=== PATIENT | female | born 1975 | race Caucasian/White ===

== ENCOUNTER 2017-04-19 20:10 | Inpatient (IN) ==
[2017-04-19] MEDS ORDERED: Ipratropium/Albuterol Neb 3 ML IH ONE ×4 (20:44→22:44)
[2017-04-19] MEDS: Ipratropium/Albuterol Neb 3 ML IH ONE ×2 (21:08)
[2017-04-19] MEDS ORDERED: Insulin Regular, Human 100 UNIT/ML SQ ONE (21:36)
--- NOTE | 2017-04-19 21:40 | Emergency Department Note ---
Disposition Clinical Impression: Asthma Disposition: Admitted As Inpatient Condition: Good Referrals: Enedelia Trejo MD [Primary Care Provider] - Forms: ED Satisfaction Letter Time of Disposition: 22:00 SOB HPI - General Chief Complaint: ED Upper Respiratory Infection Stated Complaint: chest pain burning in chest throat fever Cough Source: patient Mode of arrival: ambulatory Limitations: no limitations Nursing Notes Reviewed: Yes Vital Signs Reviewed: Yes - History of Present Illness For the past couple of days Ms. Webb has been increasingly short of breath. She is a known asthmatic but has very little use or need for albuterol when she is feeling at her baseline. She also reports that last week before she gets sick her sugars were in the 140 range. She does use Dulera on a daily basis for prevention. She is a diabetic and tells me that her sugars have been "not good". She has never quite felt this bad before in terms of her shortness of breath. Last time she needed prednisone was about a year ago. She has had a four-day history of a head cold sinus drainage. PO intake has been decreased because of her cough. She has had no nausea vomiting or diarrhea. She has had some left-sided chest pain only when coughing as well. - Related Data Home Medications Medication Instructions Recorded Confirmed Insulin ASPART [NovoLOG] 0 unit SQ TIDWM 05/01/15 04/19/17 Insulin Glargine,Hum.rec.anlog 20 unit SQ DAILY 05/01/15 04/19/17 [Lantus Solostar] Lisinopril [Zestril] 10 mg PO DAILY 05/01/15 04/19/17 hydroCHLOROthiazide 25 mg PO DAILY 05/01/15 04/19/17 [Hydrochlorothiazide] metFORMIN [Glucophage] 1,000 mg PO BIDWM 05/01/15 04/19/17 ALPRAZolam [Xanax 0.5 MG Tablet] 0.5 mg PO BID 10/29/15 10/29/15 Cetirizine HCl [Zyrtec] 10 mg PO DAILY PRN 10/29/15 04/19/17 EPINEPHrine [Epipen] 0.3 mg SQ ONCE PRN 10/29/15 04/19/17 Fluticasone Propionate Nasal 50 mcg NS BID 10/29/15 04/19/17 [Flonase] Gabapentin [Neurontin] 300 mg PO TID 10/29/15 04/19/17 Ketotifen Fumarate [Zaditor] 0.025 drop OP BID 10/29/15 04/19/17 Mometasone/Formoterol [Dulera 200 13 gm IH BID 10/29/15 04/19/17 Mcg/5 Mcg Inhaler] Montelukast [Singulair] 10 mg PO HS 10/29/15 04/19/17 Nystatin Cream [Mycostatin Cream] 1 appl TP BID 10/29/15 04/19/17 Previous Rx's Medication Instructions Recorded Gabapentin [Neurontin] 600 mg PO TID #60 capsule 10/29/15 HYDROcodone/Acet 5/325 mg [[place] 1 tab PO Q6H PRN #8 tab 01/23/17 5-325 mg] Allergies Allergy/AdvReac Type Severity Reaction Status Date / Time aspirin [ASA] Allergy Swelling Verified 04/19/17 20:23 of Lip/Tongue/Throat doxycycline Allergy Swelling Verified 04/19/17 20:23 of Lip/Tongue/Throat ibuprofen [From Motrin] Allergy Swelling Verified 04/19/17 20:23 of Lip/Tongue/Throat Penicillins Allergy Swelling Verified 04/19/17 20:23 of Lip/Tongue/Throat sulfamethoxazole Allergy Swelling Verified 04/19/17 20:23 [From Bactrim] of Lip/Tongue/Throat trimethoprim [From Bactrim] Allergy Swelling Verified 04/19/17 20:23 of Lip/Tongue/Throat Constitutional: Denies: fever, chills ENT ED: Denies: throat pain Cardiovascular: Reports: chest pain Respiratory: Reports: cough, dyspnea, sputum production Gastrointestinal: Denies: nausea, vomiting, diarrhea Musculoskeletal: Denies: myalgia Neurological: Denies: headache Endocrine: Reports: fatigue Past Medical History - Past Medical History Medical history: Reports: diabetes, hypertension, other Surgical history: Reports: Psychiatric history: Reports: no psych history CHARGE ENTRY history: Reports: bilateral tubal ligation - Social History Smoking Status: Never smoker Smokeless Tobacco Status: No Alcohol use: Reports: none Drug use: Reports: none Physical Exam - General Limitations: no limitations General appearance: alert, in distress - Head Head exam: atraumatic, normocephalic - Eye Eye exam: Present: normal appearance - ENT ENT exam: normal exam, normal oropharynx, mucous membranes moist, TM's normal bilaterally, normal external ear exam - Neck Neck exam: Present: normal inspection. Absent: lymphadenopathy - Chest Chest inspection: Present: normal inspection, symmetric chest wall rise - Respiratory Respiratory exam: Present: respiratory distress, wheezes (Fair air exchange with inspiratory expiratory wheezes symmetrically bilaterally.) - Cardiovascular Cardiovascular exam: Present: normal rhythm, tachycardia, normal heart sounds. Absent: systolic murmur, diastolic murmur - Extremities Exam Extremities exam: Present: normal inspection. Absent: pedal edema, calf tenderness (No calf edema cord or erythema) - Neurological Exam Neurological exam: Present: alert - Psychiatric Psychiatric exam: Present: normal affect, normal mood - Skin Skin exam: Present: warm, dry Course Vital Signs Temperature 98.2 F 04/19/17 20:18 Pulse Rate 101 04/19/17 20:18 Respiratory Rate 24 04/19/17 20:18 Blood Pressure 189/82 04/19/17 20:18 O2 Sat by Pulse Oximetry 87 04/19/17 20:18 Temperature 100.1 F H 04/19/17 21:48 Pulse Rate 101 04/19/17 20:18 Respiratory Rate 24 04/19/17 20:18 Blood Pressure 189/82 04/19/17 20:18 O2 Sat by Pulse Oximetry 87 04/19/17 20:18 Oxygen Delivery Oxygen Delivery Room Air Shortness of Breath/Dyspnea - [facility] Narrative Medical decision making narrative: Asthma exacerbation. After 3 DuoNeb's repeat lung exam is repeated better air exchange with less wheezing but they are still present inspiratory and expiratory. She reports some subjective relief. We discontinued her oxygen for a few minutes and it did unfortunately decrease to 90% on room air. She appears to be O2 dependent at this point and should be hospitalized. Furthermore her Accu-Chek was 200. Steroids will further exacerbate her hyperglycemia. I spoke with the covering hospitalist and presented the case. He accepted admission. She will be admitted for frequent duo nebs and IV Solu- Medrol. Temperature was repeated twice in the emergency department and escalated each time and is now 102.2. We will check a flu swab. Besides her respiratory symptoms she has no obvious focus of infection. Hypertension. She did take her pills today. Systolic decreased to 161 just prior to transfer to the floor. - Lab Data Lab Results 04/19/17 Range/Units 21:11 POC Glucose 200 H (58-89) - Radiology Data Radiology results reviewed: Yes I reviewed the patient's radiology results.
[2017-04-19] MEDS ORDERED: MethylPREDNISolone 40 MG/ML VIAL IVP ONE (22:30)
[2017-04-19] MEDS ORDERED: Acetaminophen 325 MG TABLET PO ONE (22:31)
[2017-04-19] MEDS ORDERED: Naloxone 0.4 MG/ML INJ IVP PRN (22:44)
[2017-04-19] MEDS ORDERED: Ondansetron 4 MG/2 ML VIAL IVP PRN (22:44)
[2017-04-19 23:20] LABS: Basophils % 0.2 %; Eosinophils % 0.1 %; Hematocrit 38.7 % (35.3-44.9); Hemoglobin 12.3 g/dL (11.5-15.4); Immature Granulocytes % 0.3 % (0-4); Lymphocytes # 2.2 K/mcL (0.6-4.6); Lymphocytes % 23.5 %; Mean Corpuscular HGB Conc 31.8 g/dL (31.6-35.5); Mean Corpuscular Hemoglobin 23.2 pg (28.0-33.3); Mean Corpuscular Volume 72.9 fL (83.0-100.0); Mean Platelet Volume 9.1 fL (9.4-12.4); Monocytes # 0.7 K/mcL (0.0-1.3); Monocytes % 7.3 %; Neutrophils # 6.3 K/mcL (1.6-8.9); Platelet Count 287 K/mcL (140-400); Red Blood Count 5.31 M/mcL (3.82-4.97); Red Cell Distribution Width 16.4 % (11.5-14.5); Segmented Neutrophils % 68.6 %
[2017-04-19 23:25] LABS: INR 1.2; Prothrombin Time 12.7 Seconds (9.4-12.1)
[2017-04-19 23:27] LABS: Activated Partial Thrombo Time 29.9 Seconds (26.0-36.0)
[2017-04-19 23:34] LABS: BUN/Creatinine Ratio 10 (6-26); Blood Urea Nitrogen 9 mg/dL (7-20); Calcium 8.7 mg/dL (8.6-10.8); Carbon Dioxide 20 mEq/L (19-29); Chloride 101 mEq/L (98-109); Glucose 234 mg/dL (70-99); Magnesium 1.3 mg/dL (1.6-2.6); Osmolality,Calculated 286 (280-300); Potassium 3.5 mEq/L (3.5-4.5); Sodium 135 mEq/L (136-145); eGFR For African Americans > 60 (> 60); eGFR For Non-African Americans > 60 (> 60)
[2017-04-20] MEDS: Ipratropium/Albuterol Neb 3 ML IH SCH ×12 (00:45→23:58)
[2017-04-20] MEDS ORDERED: Insulin DETEMIR 100 UNIT/ML per UNIT SQ ONE (00:50)
[2017-04-20] MEDS: Benzonatate 100 MG CAPSULE PO PRN ×3 (01:41→20:56)
[2017-04-20] MEDS ORDERED: *HR* Dextrose 50 % in Water (Syg) 50 ML SYRINGE IVP PRN (02:03)
[2017-04-20] MEDS ORDERED: D5% in Water 1,000 ML IVC PRN (02:03)
[2017-04-20] MEDS ORDERED: Dextrose Gel 15 GM PO PRN ×2 (02:03)
[2017-04-20] MEDS: methylPREDNISolone 125 MG/2 ML VIAL IVP SCH ×5 (02:54→23:57)
[2017-04-20] MEDS: *HR* Enoxaparin 40 MG/0.4 ML SYRINGE SQ SCH (06:10)
[2017-04-20] MEDS: Gabapentin 300 MG CAPSULE PO SCH ×3 (09:03→20:56)
[2017-04-20] MEDS: hydroCHLOROthiazide 25 MG TABLET PO SCH (09:03)
[2017-04-20] MEDS: Insulin LISPRO 300 UNITS/3 ML VIAL SQ SCH ×4 (09:03→20:55)
[2017-04-20] MEDS: Nystatin Cream 15 GM TUBE TP SCH ×2 (09:04→20:56)
[2017-04-20] MEDS: *HR* Metformin 500 MG TABLET PO SCH ×2 (09:04→17:15)
[2017-04-20] MEDS: Fluticasone Propionate Nasal 50 MCG/SPRAY BOTTLE NS SCH ×2 (09:05→20:55)
--- NOTE | 2017-04-20 12:25 | Internal Med History&Physical ---
Date of Encounter: 04/20/17 Time of Encounter: 12:23 Assessment and Plan (1) Asthma Current visit: Yes Status: Acute Patient continues to have slight expiratory wheeze for 2 refills and complaints of slight dyspnea on exertion. Continued cough with minimal thick sputum received. Afebrile. Patient currently on Solu-Medrol and albuterol treatments. We will continue with current plan of care and can see on Solu- Medrol for at least another 24 hours and then evaluate need for titration. We will wean oxygen to maintain saturation greater than 90%. Patient states that left lateral chest pain during coughing has been resolving. Chest x-ray shows no acute process Qualifiers: Asthma severity: mild Asthma persistence: intermittent Asthma complication type: with acute exacerbation Qualified Code(s): J45.21 - Mild intermittent asthma with (acute) exacerbation (2) HTN (hypertension) Current visit: Yes Status: Acute Qualifiers: Hypertension type: essential hypertension Qualified Code(s): I10 - Essential (primary) hypertension (3) HTN (hypertension) Current visit: Yes Status: Chronic No acute issues. Patient's vital signs have been stable. We will continue with current medications. Qualifiers: Hypertension type: essential hypertension Qualified Code(s): I10 - Essential (primary) hypertension (4) Diabetes Current visit: Yes Status: Chronic Patient's glucoses and elevated since admission. Fingersticks have been greater than 350 since starting on Solu-Medrol. Per patient's history, she is not very well controlled at home. We will continue with fingersticks and SSI. Qualifiers: Diabetes mellitus type: type 2 Diabetes mellitus complication status: without complication Diabetes mellitus usp insulin use: with usp use Qualified Code(s): E11.9 - Type 2 diabetes mellitus without complications ; Z79.4 - long term care administrator (current) use of insulin; Z79.4 - long term care administrator (current) use of insulin; Z79.4 - [facility] (current) use of insulin; Z79.4 - long term care administrator ( current) use of insulin Internal Medicine - H&P: HPI Admitted From: Emergency Dept Plans for Post Hospital Care: Home History of present illness: Ms. Webb is a 42 year old female who was admitted to emergency department last evening with complaints of shortness of breath. Patient states that over the past few days that she has been filling flulike symptoms and reports having a fever greater than 102. Patient states that several family members and her home have had flu like symptoms. Patient presented to emergency department with complaints of audible wheeze and shortness of breath. Patient was treated in the ED with albuterol nebulizer treatments and started on Solu-Medrol and later transferred to the floor. After admitting to the nursing unit, it was attempted to wean her oxygen but patient continued to drop her saturation less than 90%. Patient currently has oxygen at 2 L and maintains a saturation greater than 95%. Patient states that overnight her breathing has improved, but she continues to get winded with minimal exertion. Patient states that she no longer has an audible wheeze, although patient has noted expiratory wheezes heard to the upper isbell. Patient states a history of asthma, but states that she rarely has exacerbations. States she does not use any inhalers at home. Patient had complaints of pain to her left chest flank when coughing, which she states has been subsiding throughout the day. No rub was heard during auscultation. Patient's glucose was elevated during her arrival in ED. Patient states that her glucose usually stays at around 200 at home and she is noted that is slightly increased over the past few days. Currently her glucose is greater than 350 after starting on Solu-Medrol. Past Med Surg Social Fam HX - Past Medical History Source: patient Medical history: asthma, diabetes, hypertension, other Psychiatric history: no psych history - Past Surgical History Surgical History: - Social History Smoking Status: Never smoker Smokeless Tobacco Status: No Alcohol use: none Drug use: none Internal Medicine - H&P: Meds Insulin ASPART [NovoLOG] 0 unit SQ TIDWM 05/01/15 [History] Insulin Glargine,Hum.rec.anlog [Lantus Solostar] 20 unit SQ DAILY 05/01/15 [ History] Lisinopril [Zestril] 10 mg PO DAILY 05/01/15 [History] hydroCHLOROthiazide [Hydrochlorothiazide] 25 mg PO DAILY 05/01/15 [History] metFORMIN [Glucophage] 1,000 mg PO BIDWM 05/01/15 [History] ALPRAZolam [Xanax 0.5 MG Tablet] 0.5 mg PO BID 10/29/15 [History] Cetirizine HCl [Zyrtec] 10 mg PO DAILY PRN 10/29/15 [History] EPINEPHrine [Epipen] 0.3 mg SQ ONCE PRN 10/29/15 [History] Fluticasone Propionate Nasal [Flonase] 50 mcg NS BID 10/29/15 [History] Gabapentin [Neurontin] 300 mg PO TID 10/29/15 [History] Gabapentin [Neurontin] 600 mg PO TID #60 capsule 10/29/15 [Rx] Ketotifen Fumarate [Zaditor] 0.025 drop OP BID 10/29/15 [History] Mometasone/Formoterol [Dulera 200 Mcg/5 Mcg Inhaler] 13 gm IH BID 10/29/15 [ History] Montelukast [Singulair] 10 mg PO HS 10/29/15 [History] Nystatin Cream [Mycostatin Cream] 1 appl TP BID 10/29/15 [History] HYDROcodone/Acet 5/325 mg [[place] 5-325 mg] 1 tab PO Q6H PRN #8 tab 01/23/17 [Rx] 3 Allergy/AdvReac Type Severity Reaction Status Date / Time aspirin [ASA] Allergy Swelling Verified 04/19/17 20:23 of Lip/Tongue/Throat doxycycline Allergy Swelling Verified 04/19/17 20:23 of Lip/Tongue/Throat ibuprofen [From Motrin] Allergy Swelling Verified 04/19/17 20:23 of Lip/Tongue/Throat Penicillins Allergy Swelling Verified 04/19/17 20:23 of Lip/Tongue/Throat sulfamethoxazole Allergy Swelling Verified 04/19/17 20:23 [From Bactrim] of Lip/Tongue/Throat trimethoprim [From Bactrim] Allergy Swelling Verified 04/19/17 20:23 of Lip/Tongue/Throat All Systems PM: A 10-system review of systems was performed and is negative for pertinent findings except as documented above in the HPI. - Constitutional Constitutional: no chills, no fever(s), no night sweats - EENT Eyes: no change in vision, no discharge, no pain, no photophobia Nose, mouth and throat: no dysphagia, no nasal discharge, no neck pain, no sore throat - Cardiovascular Cardiovascular ROS IM: no chest pain, no diaphoresis, no dyspnea, no lightheadedness, no palpitations, no syncope - Respiratory Respiratory: as per HPI, cough, dyspnea, wheezing, no excessive phlegm production - Gastrointestinal Gastrointestinal: no abdominal pain, no diarrhea, no hematemesis, no hematochezia, no melena, no nausea, no vomiting - Genitourinary Genitourinary: no change in urinary stream, no dysuria, no flank pain, no hematuria - Musculoskeletal Musculoskeletal ROS IM: as per HPI, no numbness, no tingling - Integumentary Integumentary IM: no rash, no unusual bruising - Neurological Neurological ROS: no confusion, no convulsions, no focal weakness, no numbness, no tingling, no tremor(s) - Endocrine Endocrine IM: as per HPI - Constitutional Vitals: Temp Pulse Resp BP Pulse Ox 98.5 F 97 16 152/70 91 04/20/17 11:45 04/20/17 11:45 04/20/17 11:45 04/20/17 11:45 04/20/17 11:45 General appearance: Present: A&O X 3, pleasant - Head Head exam: Present: atraumatic, normocephalic Additional comments: No lymphedema - Neck Neck exam general surgery: Present: supple, trachea midline. Absent: lymphadenopathy - Respiratory Respiratory exam: Absent: accessory muscle use, CTAB, rhonchi Additional comments: ontinued moderate expiratory wheeze heard to the upper lung isbell and fine crackles heard to the posterior bases. Respiratory rate appears regular and relaxed. Oximetry shows greater than 95% on 2 L of oxygen. - Cardiovascular Cardiovascular exam: Present: RRR, +S1, +S2. Absent: diastolic murmur, gallop, rubs, systolic murmur - GI/Abdominal GI/Abdominal exam: Present: normal bowel sounds, soft, no peritoneal signs. Absent: distended, tenderness - Extremities Exam Extremities exam: Present: warm, radial pulses palpable and symmetrical. Absent : calf tenderness, cyanotic, pedal edema - Neurological Exam Neurological exam: Present: CN II-XII intact, oriented X3, no focal deficits. Absent: pronater drift, facial droop, speech deficit - Skin Skin exam: Present: dry, intact Internal Med - H&P Results - Labs CBC & Chem 7: 04/19/17 23:15 04/19/17 23:15 Labs: Short CBC 04/19/17 Range/Units 23:15 WBC 9.3 (4.3-11.1) K/mcL Hgb 12.3 (11.5-15.4) g/dL Hct 38.7 (35.3-44.9) % Plt Count 287 (140-400) K/mcL Neutrophils # 6.3 (1.6-8.9) K/mcL BMP 04/19/17 23:15 Sodium 135 L Potassium 3.5 Chloride 101 Carbon Dioxide 20 BUN 9 Creatinine 0.93 Glucose 234 H Calcium 8.7
[2017-04-20] MEDS: Insulin DETEMIR 100 UNIT/ML X5UNITS SQ SCH (20:56)
[2017-04-20] MEDS: ALPRAZolam 0.5 MG TABLET PO PRN (20:56)
[2017-04-21] MEDS: Acetaminophen 325 MG TABLET PO PRN ×2 (00:03→23:58)
[2017-04-21] MEDS: Ipratropium/Albuterol Neb 3 ML IH SCH ×8 (02:00→17:16)
[2017-04-21] MEDS: methylPREDNISolone 125 MG/2 ML VIAL IVP SCH ×4 (05:27→23:54)
[2017-04-21] MEDS: *HR* Enoxaparin 40 MG/0.4 ML SYRINGE SQ SCH (05:28)
[2017-04-21 05:44] LABS: Hematocrit 37.9 % (35.3-44.9); Hemoglobin 11.9 g/dL (11.5-15.4); Mean Corpuscular HGB Conc 31.4 g/dL (31.6-35.5); Mean Corpuscular Hemoglobin 23.2 pg (28.0-33.3); Mean Platelet Volume 9.6 fL (9.4-12.4); Platelet Count 315 K/mcL (140-400); Red Blood Count 5.12 M/mcL (3.82-4.97); Red Cell Distribution Width 16.6 % (11.5-14.5)
[2017-04-21 06:07] LABS: Alanine Aminotransferase 20 Units/L (0-55); Albumin 2.9 g/dL (3.5-5.0); Albumin/Globulin Ratio 0.8 (1.1-2.2); Alkaline Phosphatase 81 Units/L (38-126); Aspartate Amino Transferase 37 Units/L (5-34); BUN/Creatinine Ratio 16 (6-26); Bilirubin,Total 0.2 mg/dL (0.2-1.2); Blood Urea Nitrogen 18 mg/dL (7-20); Calcium 9.3 mg/dL (8.6-10.8); Carbon Dioxide 22 mEq/L (19-29); Chloride 100 mEq/L (98-109); Globulin 3.5 g/dL (2.4-3.5); Glucose 396 mg/dL (70-99); Magnesium 1.8 mg/dL (1.6-2.6); Osmolality,Calculated 294 (280-300); Potassium 4.8 mEq/L (3.5-4.5); Sodium 133 mEq/L (136-145); Total Protein 6.4 g/dL (6.0-8.3); eGFR For African Americans > 60 (> 60); eGFR For Non-African Americans 53 (> 60)
[2017-04-21] MEDS: Insulin LISPRO 300 UNITS/3 ML VIAL SQ SCH ×3 (08:24→17:14)
[2017-04-21] MEDS: *HR* Metformin 500 MG TABLET PO SCH ×2 (08:27→17:16)
[2017-04-21] MEDS: Benzonatate 100 MG CAPSULE PO PRN ×2 (08:27→23:57)
[2017-04-21] MEDS: hydroCHLOROthiazide 25 MG TABLET PO SCH (08:27)
[2017-04-21] MEDS: Gabapentin 300 MG CAPSULE PO SCH ×3 (08:27→23:55)
[2017-04-21] MEDS: Fluticasone Propionate Nasal 50 MCG/SPRAY BOTTLE NS SCH (08:28)
[2017-04-21] MEDS: Nystatin Cream 15 GM TUBE TP SCH (08:28)
--- NOTE | 2017-04-21 13:14 | Internal Med Progress Note ---
Date of Encounter: 04/21/17 Time of Encounter: 13:10 - Assessment and plan (1) Asthma Current Visit: Yes Status: Acute Assessment and plan: stable. continue steroid, O2 and inhaled meds. Qualifiers: Asthma severity: mild Asthma persistence: intermittent Asthma complication type: with acute exacerbation Qualified Code(s): J45.21 - Mild intermittent asthma with (acute) exacerbation (2) HTN (hypertension) Current Visit: Yes Status: Acute Assessment and plan: controlled with current meds. monitor BP Qualifiers: Hypertension type: essential hypertension Qualified Code(s): I10 - Essential (primary) hypertension (3) Diabetes Current Visit: Yes Status: Chronic Assessment and plan: elevated glucose levels due to steroids Qualifiers: Diabetes mellitus type: type 2 Diabetes mellitus complication status: without complication Diabetes mellitus medical terminologist insulin use: with medical terminologist use Qualified Code(s): E11.9 - Type 2 diabetes mellitus without complications ; Z79.4 - custodial (current) use of insulin; Z79.4 - custodial (current) use of insulin; Z79.4 - custodial (current) use of insulin; Z79.4 - medical terminologist ( current) use of insulin - Time Spent With Patient less than 15 minutes - Subjective Interval history: states breathing improving. occasional wheeze, chest not as "tight". requesting discharge soon. O2 93% with 2 liters per NC. glucose elevated with steroids. - Constitutional Vitals: Temp Pulse Resp BP Pulse Ox 98.3 F 72 18 128/69 93 04/21/17 07:29 04/21/17 07:29 04/21/17 07:29 04/21/17 07:29 04/21/17 07:29 General appearance: Present: A&O X 3, pleasant, no acute distress, answers questions appropriately - Head Head exam: Present: atraumatic, normocephalic - Eye Eye exam: Present: PERRL, conjuntiva pink, sclera anicteric Pupils: Present: PERRL - Neck Neck exam general surgery: Present: supple, trachea midline. Absent: lymphadenopathy - Respiratory Respiratory exam: Present: CTAB, wheezes. Absent: accessory muscle use, rales, rhonchi Additional comments: scattered expiratory wheezes. - Cardiovascular Cardiovascular exam: Present: RRR, +S1, +S2. Absent: diastolic murmur, gallop, rubs, systolic murmur - GI/Abdominal GI/Abdominal exam: Present: normal bowel sounds, soft, no peritoneal signs. Absent: distended, tenderness - Extremities Exam Extremities exam: Present: warm, radial pulses palpable and symmetrical. Absent : calf tenderness, cyanotic, pedal edema - Neurological Exam Neurological exam: Present: CN II-XII intact, oriented X3, no focal deficits. Absent: pronater drift, facial droop, speech deficit - Skin Skin exam: Present: dry, intact Internal Medicine: Result - Labs CBC & Chem 7: 04/21/17 05:15 04/21/17 05:15 Labs: Short CBC 04/21/17 Range/Units 05:15 WBC 7.0 (4.3-11.1) K/mcL Hgb 11.9 (11.5-15.4) g/dL Hct 37.9 (35.3-44.9) % Plt Count 315 (140-400) K/mcL BMP 04/21/17 05:15 Sodium 133 L Potassium 4.8 H D Chloride 100 Carbon Dioxide 22 BUN 18 Creatinine 1.13 H Glucose 396 H Calcium 9.3 Liver Function 04/21/17 Range/Units 05:15 Total Bilirubin 0.2 (0.2-1.2) mg/dL AST 37 H (5-34) Units/L ALT 20 (0-55) Units/L Alkaline Phosphatase 81 (38-126) Units/L Albumin 2.9 L (3.5-5.0) g/dL - ABG Interpretation ABG results: PT/INR, D-dimer PT 12.7 Seconds (9.4-12.1) H 04/19/17 23:15 Consult Discharge Plan - Plan Referrals: Enedelia Trejo MD [Primary Care Provider] -
[2017-04-21] MEDS: Ipratropium/Albuterol Neb 3 ML IH PRN (18:58)
[2017-04-21] MEDS: Insulin DETEMIR 100 UNIT/ML X5UNITS SQ SCH (23:54)
[2017-04-21] MEDS: ALPRAZolam 0.5 MG TABLET PO PRN (23:57)
[2017-04-22] MEDS: Insulin LISPRO 300 UNITS/3 ML VIAL SQ SCH ×3 (00:10→12:25)
[2017-04-22 05:12] LABS: Basophils % 0.1 %; Immature Granulocytes % 0.9 % (0-4); Lymphocytes # 1.3 K/mcL (0.6-4.6); Lymphocytes % 11.1 %; Mean Corpuscular HGB Conc 31.6 g/dL (31.6-35.5); Mean Corpuscular Hemoglobin 23.4 pg (28.0-33.3); Mean Corpuscular Volume 74.2 fL (83.0-100.0); Mean Platelet Volume 9.7 fL (9.4-12.4); Monocytes # 0.4 K/mcL (0.0-1.3); Monocytes % 3.4 %; Platelet Count 367 K/mcL (140-400); Red Blood Count 5.12 M/mcL (3.82-4.97); Red Cell Distribution Width 16.4 % (11.5-14.5); Segmented Neutrophils % 84.5 %
[2017-04-22 05:25] LABS: BUN/Creatinine Ratio 23 (6-26); Blood Urea Nitrogen 23 mg/dL (7-20); Calcium 9.4 mg/dL (8.6-10.8); Carbon Dioxide 22 mEq/L (19-29); Chloride 98 mEq/L (98-109); Glucose 355 mg/dL (70-99); Osmolality,Calculated 292 (280-300); Potassium 4.1 mEq/L (3.5-4.5); Sodium 132 mEq/L (136-145); eGFR For African Americans > 60 (> 60); eGFR For Non-African Americans > 60 (> 60)
[2017-04-22] MEDS: methylPREDNISolone 125 MG/2 ML VIAL IVP SCH (07:20)
[2017-04-22] MEDS: *HR* Enoxaparin 40 MG/0.4 ML SYRINGE SQ SCH (07:20)
[2017-04-22] MEDS: Ipratropium/Albuterol Neb 3 ML IH PRN ×2 (09:09→12:23)
[2017-04-22] MEDS: *HR* Metformin 500 MG TABLET PO SCH (09:10)
[2017-04-22] MEDS: Gabapentin 300 MG CAPSULE PO SCH ×2 (09:10→14:01)
[2017-04-22] MEDS: hydroCHLOROthiazide 25 MG TABLET PO SCH (09:10)
[2017-04-22 11:52] VITALS: BP 163/82
[2017-04-22] MEDS: Benzonatate 100 MG CAPSULE PO PRN (12:23)
--- NOTE | 2017-04-22 13:21 | Internal Med Progress Note ---
Date of Encounter: 04/22/17 Time of Encounter: 13:21 - Assessment and plan (1) Asthma Current Visit: Yes Status: Acute Assessment and plan: No acute issues. Patient's oxygenation on room air was greater than 90%. 2 years with cough but no sputum has been produced. No wheezes heard during auscultation. We will continue patient on oral corticosteroids. Patient to continue on albuterol nebulized treatments. Chest x-ray was repeated which showed no infectious process. Patient likely to have acute bronchitis. Patient being prepared for discharge to home. Qualifiers: Asthma severity: mild Asthma persistence: intermittent Asthma complication type: with acute exacerbation Qualified Code(s): J45.21 - Mild intermittent asthma with (acute) exacerbation (2) HTN (hypertension) Current Visit: Yes Status: Acute Assessment and plan: Vital signs are stable. We will continue with current medications Qualifiers: Hypertension type: essential hypertension Qualified Code(s): I10 - Essential (primary) hypertension (3) Diabetes Current Visit: Yes Status: Chronic Assessment and plan: Patient's glucose continues to be elevated likely secondary to diffuse cortical steroids. We will continue with sliding scale coverage and continue with long- acting insulin Qualifiers: Diabetes mellitus type: type 2 Diabetes mellitus complication status: without complication Diabetes mellitus superintendent terminal insulin use: with fpc use Qualified Code(s): E11.9 - Type 2 diabetes mellitus without complications ; Z79.4 - terminal gauger supervisor (current) use of insulin; Z79.4 - terminal gauger supervisor (current) use of insulin; Z79.4 - [facility] (current) use of insulin; Z79.4 - [facility] ( current) use of insulin - Subjective Interval history: Patient appears relaxed. Patient states that she still has malaise but denies any shortness of breath. Patient states she continues to have a cough but is nonproductive. Afebrile and denies any chills. Patient denies any audible wheezes - Constitutional Vitals: Temp Pulse Resp BP Pulse Ox 97.8 F 91 18 163/82 92 04/22/17 11:51 04/22/17 11:51 04/22/17 11:51 04/22/17 11:51 04/22/17 11:51 General appearance: Present: A&O X 3, pleasant, no acute distress, answers questions appropriately - Head Head exam: Present: atraumatic, normocephalic - Eye Eye exam: Present: PERRL, conjuntiva pink, sclera anicteric Pupils: Present: PERRL - Neck Neck exam general surgery: Present: supple, trachea midline. Absent: lymphadenopathy - Respiratory Respiratory exam: Present: CTAB. Absent: accessory muscle use, rales, rhonchi, wheezes - Cardiovascular Cardiovascular exam: Present: RRR, +S1, +S2. Absent: diastolic murmur, gallop, rubs, systolic murmur - GI/Abdominal GI/Abdominal exam: Present: normal bowel sounds, soft, no peritoneal signs. Absent: distended, tenderness - Extremities Exam Extremities exam: Present: warm, radial pulses palpable and symmetrical. Absent : calf tenderness, cyanotic, pedal edema - Neurological Exam Neurological exam: Present: CN II-XII intact, oriented X3, no focal deficits. Absent: pronater drift, facial droop, speech deficit - Skin Skin exam: Present: dry, intact Internal Medicine: Result - Labs CBC & Chem 7: 04/22/17 04:30 04/22/17 04:30 Labs: Short CBC 04/22/17 Range/Units 04:30 WBC 11.8 H D (4.3-11.1) K/mcL Hgb 12.0 (11.5-15.4) g/dL Hct 38.0 (35.3-44.9) % Plt Count 367 (140-400) K/mcL Neutrophils # 10.0 H (1.6-8.9) K/mcL BMP 04/22/17 04:30 Sodium 132 L Potassium 4.1 Chloride 98 Carbon Dioxide 22 BUN 23 H Creatinine 0.99 Glucose 355 H Calcium 9.4 - ABG Interpretation ABG results: PT/INR, D-dimer PT 12.7 Seconds (9.4-12.1) H 04/19/17 23:15 - Impressions Impressions Chest X-Ray 04/22/17 04:00 IMPRESSION: Bibasilar atelectasis versus pneumonia. D/ / Nirav Tejada MD / Nirav Tejada MD Interpreting Provider: Nirav Tejada MD Consult Discharge Plan - Plan Referrals: Enedelia Trejo MD [Primary Care Provider] -
--- NOTE | 2017-04-22 13:40 | Discharge Summary ---
Date of Encounter: 04/22/17 Time of Encounter: 13:38 - Discharge Medications Home Medications: Insulin ASPART [NovoLOG] 0 unit SQ TIDWM 05/01/15 [History] Insulin Glargine,Hum.rec.anlog [Lantus Solostar] 20 unit SQ DAILY 05/01/15 [ History] Lisinopril [Zestril] 10 mg PO DAILY 05/01/15 [History] hydroCHLOROthiazide [Hydrochlorothiazide] 25 mg PO DAILY 05/01/15 [History] metFORMIN [Glucophage] 1,000 mg PO BIDWM 05/01/15 [History] ALPRAZolam [Xanax 0.5 MG Tablet] 0.5 mg PO BID 10/29/15 [History] Cetirizine HCl [Zyrtec] 10 mg PO DAILY PRN 10/29/15 [History] EPINEPHrine [Epipen] 0.3 mg SQ ONCE PRN 10/29/15 [History] Fluticasone Propionate Nasal [Flonase] 50 mcg NS BID 10/29/15 [History] Gabapentin [Neurontin] 300 mg PO TID 10/29/15 [History] Gabapentin [Neurontin] 600 mg PO TID #60 capsule 10/29/15 [Rx] Ketotifen Fumarate [Zaditor] 0.025 drop OP BID 10/29/15 [History] Mometasone/Formoterol [Dulera 200 Mcg/5 Mcg Inhaler] 13 gm IH BID 10/29/15 [ History] Montelukast [Singulair] 10 mg PO HS 10/29/15 [History] Nystatin Cream [Mycostatin Cream] 1 appl TP BID 10/29/15 [History] HYDROcodone/Acet 5/325 mg [[place] 5-325 mg] 1 tab PO Q6H PRN #8 tab 01/23/17 [Rx] Allergies/Adverse Reactions: 3 Allergy/AdvReac Type Severity Reaction Status Date / Time aspirin [ASA] Allergy Swelling Verified 04/19/17 20:23 of Lip/Tongue/Throat doxycycline Allergy Swelling Verified 04/19/17 20:23 of Lip/Tongue/Throat ibuprofen [From Motrin] Allergy Swelling Verified 04/19/17 20:23 of Lip/Tongue/Throat Penicillins Allergy Swelling Verified 04/19/17 20:23 of Lip/Tongue/Throat sulfamethoxazole Allergy Swelling Verified 04/19/17 20:23 [From Bactrim] of Lip/Tongue/Throat trimethoprim [From Bactrim] Allergy Swelling Verified 04/19/17 20:23 of Lip/Tongue/Throat Date of admission: 04/20/17 19:11 Primary care physician: Enedelia Trejo MD Discharging clinician: Keon Winn Anticipated date of discharge: 04/22/17 - Patient Status Condition: Good - Discharge Instructions Follow Up With: Enedelia Trejo MD [Primary Care Provider] - Interval History: Lissa is feeling much better she really wants to go home for Amitive. She is satting in the upper 90s on room air. Now occasionally does drop when she has her coughing spasms. I am going to send her home on a Z-Alejandro so decreasing dose of prednisone and Tessalon Perles for coughing Hospital course: Ms. Webb is a 42 year old female - Time Spent with Patient Total time spent providing and/or coordinating discharge services: - Constitutional Vitals: Temp Pulse Resp BP Pulse Ox 97.8 F 91 18 163/82 92 04/22/17 11:51 04/22/17 11:51 04/22/17 11:51 04/22/17 11:51 04/22/17 11:51 General appearance: Present: A&O X 3, pleasant, no acute distress, answers questions appropriately
[2017-04-22] MEDS ORDERED: MethylPREDNISolone 40 MG/ML VIAL IVP SCH (21:00)
== END 2017-04-22 14:43 | disposition home or self-care (01) | DRG 141 ==
LOC: INPGRE 20:10 → EMEROOGRE 20:10 → INPGRE 23:08
PROVIDERS: ADMIT Internal Medicine; ATTEND Internal Medicine